=== PATIENT | female | born 2005 | race Caucasian/White ===

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

== ENCOUNTER 2023-12-11 17:18 | Emergency (ER) | payer BC, SELFPAY ==
[2023-12-11 17:22] VITALS: BP 176/104; PULSE 85; RESP 17; TEMP 37.5; O2SAT 99; BMI 27.3
--- NOTE | 2023-12-11 17:33 | DI.RAD.S_ITS ---
PROCEDURE: XR ANKLE RT MIN 3V INDICATIONS: fall TECHNIQUE: 3 views of the ankle were acquired. COMPARISON: [facility], , XR FOOT RT MIN 3V, 12/11/2023, 17:32. FINDINGS: Bones: No fractures or dislocations. Ankle mortise is normally aligned. No suspicious bony lesions. The talar dome demonstrates no jessie abnormality. Soft tissues: Soft tissue swelling is seen laterally. IMPRESSION: Soft tissue swelling is seen, without an acute bony abnormality seen by plain film. If there is point tenderness (or other clinical suspicion for a fracture not seen on these images) then a dedicated CT or a short-term followup plain film series could be considered for further evaluation, as clinically appropriate. Dictated by: John Burch M.D. on 12/11/2023 at 17:14 Approved by: John Burch M.D. on 12/11/2023 at 17:14
--- NOTE | 2023-12-11 17:33 | DI.RAD.S_ITS ---
PROCEDURE: XR FOOT RT MIN 3V INDICATIONS: fall TECHNIQUE: 3 views of the foot were acquired. COMPARISON: [facility], CR, XR ANKLE RT MIN 3V, 12/11/2023, 17:32. FINDINGS: Bones: No fractures or dislocations. No suspicious bony lesions. Soft tissues: No tibiotalar joint effusion. Achilles tendon appears normal. IMPRESSION: No acute bony abnormality is seen on these plain films. Dictated by: John Burch M.D. on 12/11/2023 at 17:14 Approved by: John Burch M.D. on 12/11/2023 at 17:15
--- NOTE | 2023-12-11 17:36 | ED.LOWEXIN ---
HPI - Extremity Injury (Lower) <Cathie Dumont PA-C - Last Filed: 12/11/23 18:29> General Chief Complaint: Extremity Injury, Lower Stated Complaint: R Ankle Injury Time Seen by Provider: 12/11/23 17:36 Source: patient Mode of arrival: Family Vehicle History of Present Illness HPI Narrative: Patient is a 18-year-old female presents to the emergency department with right ankle pain. Patient was walking her dog today around 3:[address] [place], when she ended up twisting her ankle. Patient heard a loud pop and crunching sound. Now she is unable to weightbear. She presents to the emergency room department already using crutches. She complains right lateral ankle pain and swelling. Took Advil prior to being seen here in the emergency department. Complains of pain with any type of weight-bearing activity. Previous ankle sprains to the right, no surgical intervention. No other further complaints. Related Data Home Medications Medication Instructions Recorded Confirmed metformin 1,000 mg tablet 1,000 mg PO BID 09/20/19 07/14/20 aripiprazole 2 mg tablet 2 mg PO DAILY Mood Stabilization 07/14/20 07/14/20 hydrochlorothiazide 25 mg tablet 25 mg PO DAILY 07/14/20 07/14/20 Previous Rx's Medication Instructions Recorded fluoxetine 40 mg capsule (Prozac) 40 mg PO DAILY Depression #30 caps 06/17/20 guanfacine 2 mg tablet,extended 2 mg PO DAILY ADHD #30 tabs 06/17/20 release 24 hr Allergies Allergy/AdvReac Type Severity Reaction Status Date / Time Penicillins Allergy Anaphylaxis Verified 12/11/23 17:29 TDAP Allergy Mild SWELLING Uncoded 12/11/23 17:28 Review of Systems <Cathie Dumont PA-C - Last Filed: 12/11/23 18:29> Review of Systems Narrative: Negative except as above Musculoskeletal Comments: Right ankle pain Patient History <Cathie Dumont PA-C - Last Filed: 12/11/23 18:29> Medical History Attention deficit hyperactivity disorder (ADHD), combined type, moderate Social anxiety disorder of childhood Unspecified asthma Major depressive disorder, recurrent severe without psychotic features Obstructive sleep apnea Excessive daytime sleepiness Childhood obesity (05/11/17) Hypertension (05/11/17) Surgical History History of tonsillectomy and adenoidectomy (02/16/18) Social History household members: family (mom, dad, brother) housing: house Smoking Status: Never smoker Smoking Status: Never smoker alcohol intake frequency: holidays/special occasions only Substance Use Type: does not use Exam <Cathie Dumont PA-C - Last Filed: 12/11/23 18:29> Initial Vital Signs Initial Vital Signs: Vital Signs Temperature 99.5 F 12/11/23 17:22 Pulse Rate 85 12/11/23 17:22 Respiratory Rate 17 12/11/23 17:22 Blood Pressure 176/104 H 12/11/23 17:22 Pulse Oximetry 99 12/11/23 17:22 Oxygen Delivery Method Room Air 12/11/23 17:22 Const General: cooperative, healthy appearing, comfortable, well developed, well groomed, No acute distress and No in distress Nutritional Appearance: overweight Eyes General: Yes appearance normal, both eyes and all related structures Pupils: PERRL EOM: EOM intact bilaterally Skin Other: Warm pink and dry, some soft tissue swelling to the lateral ankle, no ecchymosis, no bruising. Neuro Other: Cranial nerves are grossly intact, cognition and speech are intact, patient using crutches. Extrem Other: Range of motion, strength, pulses, cap refill preserved in the upper extremity and left lower extremity. Right lower extremity exam no pain in the right hip, knee, proximal tib-fib, pain in the right ankle, mild soft tissue swelling is noted, no obvious deformity, lateral soft tissue swelling, no ecchymosis, no bruising, deformity, no pain over the 5th metatarsal, cap refill is preserved, pulses are present, no pain over the midfoot, no pain over the calcaneus. Psych Other: Parents, mental status, speech, movement, mood, affect, attitude, thought process, thought content, judgment are all intact. <Red Smyth MD - Last Filed: 12/11/23 19:26> Initial Vital Signs Initial Vital Signs: Vital Signs Temperature 99.5 F 12/11/23 17:22 Pulse Rate 85 12/11/23 17:22 Respiratory Rate 17 12/11/23 17:22 Blood Pressure 176/104 H 12/11/23 17:22 Pulse Oximetry 99 12/11/23 17:22 Oxygen Delivery Method Room Air 12/11/23 17:22 Scores <Cathie Dumont PA-C - Last Filed: 12/11/23 18:29> GCS Citation: 15 Course <Cathie Dumont PA-C - Last Filed: 12/11/23 18:29> Orders Ordered: ED Orders 12/11/23 17:33 XR ankle RT min 3V Stat XR foot RT min 3V Stat Vital Signs Vital signs: Vital Signs - 8 hr 12/11/23 17:22 12/11/23 18:14 Temperature 99.5 F Pulse Rate 85 84 Respiratory Rate 17 16 Blood Pressure 176/104 H 123/88 Pulse Oximetry 99 99 Oxygen Delivery Method Room Air Room Air <Red Smyth MD - Last Filed: 12/11/23 19:26> Orders Ordered: ED Orders 12/11/23 17:33 XR ankle RT min 3V Stat XR foot RT min 3V Stat Vital Signs Vital signs: Vital Signs - 8 hr 12/11/23 17:22 12/11/23 18:14 Temperature 99.5 F Pulse Rate 85 84 Respiratory Rate 17 16 Blood Pressure 176/104 H 123/88 Pulse Oximetry 99 99 Oxygen Delivery Method Room Air Room Air MDM - Extremity Injury (Lower) <Cathie Dumont PA-C - Last Filed: 12/11/23 18:29> Imaging Data Extremity x-ray #1: My Impression: X-ray of the foot Negative for any acute abnormalities Radiologist's Impression: [address] [address] XRay Report Signed Patient: Lennie Red MR#: [id number] : 2005 Acct:[id number] Age/Sex: 18 / F Date of Service: 12/11/23 Loc: ED Accession Number: [id number] Procedure: XR foot RT min 3V Ordering Provider: Red Smyth MD PROCEDURE: XR FOOT RT MIN 3V INDICATIONS: fall TECHNIQUE: 3 views of the foot were acquired. COMPARISON: [facility], CR, XR ANKLE RT MIN 3V, 12/11/2023, 17:32. FINDINGS: Bones: No fractures or dislocations. No suspicious bony lesions. Soft tissues: No tibiotalar joint effusion. Achilles tendon appears normal. IMPRESSION: No acute bony abnormality is seen on these plain films. Dictated by: John Burch M.D. on 12/11/2023 at 17:14 Approved by: John Burch M.D. on 12/11/2023 at 17:15 Extremity x-ray #2: My Impression: X-ray of the ankle Negative for any acute abnormalities Radiologist's Impression: [address] [address] XRay Report Signed Patient: Lennie Red MR#: [id number] : 2005 Acct:[id number] Age/Sex: 18 / F Date of Service: 12/11/23 Loc: ED Accession Number: [id number] Procedure: XR ankle RT min 3V Ordering Provider: Red Smyth MD PROCEDURE: XR ANKLE RT MIN 3V INDICATIONS: fall TECHNIQUE: 3 views of the ankle were acquired. COMPARISON: [facility], CR, XR FOOT RT MIN 3V, 12/11/2023, 17:32. FINDINGS: Bones: No fractures or dislocations. Ankle mortise is normally aligned. No suspicious bony lesions. The talar dome demonstrates no jessie abnormality. Soft tissues: Soft tissue swelling is seen laterally. IMPRESSION: Soft tissue swelling is seen, without an acute bony abnormality seen by plain film. If there is point tenderness (or other clinical suspicion for a fracture not seen on these images) then a dedicated CT or a short-term followup plain film series could be considered for further evaluation, as clinically appropriate. Dictated by: John Burch M.D. on 12/11/2023 at 17:14 Approved by: John Burch M.D. on 12/11/2023 at 17:14 MDM Narrative Medical decision making narrative: 18-year-old female presents to the emergency room department with lateral right ankle pain after twisting it while walking her dog. Patient used Advil prior to being seen here in the emergency department Patient already has crutches Right lateral ankle soft tissue swelling, no ecchymosis, no obvious deformity X-ray of the right ankle negative for fracture X-ray of the right foot negative Jared wrap Patient has crutches Nonweightbearing for 72 hours progress toe-touch weight-bearing weight-bearing as tolerated High-grade ankle sprain [id number]-afesvby ibuprofen, Tylenol discomfort and pain Differential diagnosis; ankle sprain high-grade internal derangement Supportive therapy education ED precautions Discharge Plan Departure Patient Disposition: Home Clinical Impression: Ankle sprain and strain High ankle sprain of right lower extremity Qualifiers: Encounter type: initial encounter Qualified Code(s): S93.491A - Sprain of other ligament of right ankle, initial encounter Activity Restrictions/Additional Instructions: Rest, ice, elevation Your x-rays are negative for any acute findings Nonweightbearing for 72 hours Progress to full weight-bearing as tolerated [id number] Tylenol, ibuprofen, Aleve for discomfort pain Follow up with her primary care doctor Return to the emergency department as needed Prescriptions: No Action metformin 1,000 mg tablet 1,000 mg PO BID fluoxetine [Prozac] 40 mg capsule 40 mg PO DAILY Qty: 30 1RF guanfacine 2 mg tablet extended release 24 hr 2 mg PO DAILY MDD 2 mg Qty: 30 1RF aripiprazole 2 mg tablet 2 mg PO DAILY MDD 2 mg hydrochlorothiazide 25 mg Tablet 25 mg PO DAILY Referrals: Onelia Carpio ARNP [Primary Care Provider] - Stand Alone Forms: Patient Portal/API ED Sign-out <Red Smyth MD - Last Filed: 12/11/23 19:26> Cosign ED Attending Cosignature Attestation: I was immediately available in the department for consultation. This documentation has been reviewed. Red Smyth MD
[2023-12-11 18:14] VITALS: BP 123/88; PULSE 84; RESP 16; O2SAT 99
== END 2023-12-11 18:45 | disposition home or self-care (01) ==
PROVIDERS: Emergency Provider Physician Assistant; PCP Internal Medicine
DX: S93.401A Sprain of unspecified ligament of right ankle, initial encounter (principal); S96.911A Strain of unspecified muscle and tendon at ankle and foot level, right foot, initial encounter; S93.491A Sprain of other ligament of right ankle, initial encounter; X50.1XXA Overexertion from prolonged static or awkward postures, initial encounter
CPT/HCPCS: 29540; 73610; 73630; 99283

== ENCOUNTER → 2024-02-10 08:10 | Outpatient (CLI) | payer BC, SELFPAY ==
--- NOTE | 2024-02-10 | DI.RAD.S_ITS ---
PROCEDURE: XR SHOULDER LT MIN 2V INDICATIONS: shoulder dislocation, recurrent TECHNIQUE: 3 views of the shoulder were acquired. COMPARISON: None. FINDINGS: Bones: No fractures or dislocations. No suspicious bony lesions. Visualized ribs appear intact. Soft tissues: No suspicious soft tissue calcifications. IMPRESSION: Unremarkable radiographic examination of left shoulder. No obvious Hill-Sachs or Bankart fracture is seen. Dictated by: Robbin Livingston M.D. on 02/10/2024 at 15:01 Approved by: Robbin Livingston M.D. on 02/10/2024 at 15:01
== END ==
PROVIDERS: PCP Internal Medicine; Referring Provider Internal Medicine; Visit Provider Internal Medicine
DX: M24.412 Recurrent dislocation, left shoulder (principal)
CPT/HCPCS: 73030

== ENCOUNTER 2024-02-18 18:21 | Emergency (ER) | payer OTHER, SELFPAY ==
[2024-02-18 18:24] VITALS: BP 167/107; PULSE 94; RESP 16; TEMP 36.9; O2SAT 97; BMI 31.9
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
[2024-02-18 20:16] VITALS: BP 176/91; PULSE 86; O2SAT 99
== END 2024-02-18 20:10 | disposition home or self-care (01) ==
PROVIDERS: Emergency Provider Emergency Medicine; PCP Internal Medicine
DX: S13.4XXA Sprain of ligaments of cervical spine, initial encounter (principal); V89.2XXA Person injured in unspecified motor-vehicle accident, traffic, initial encounter
CPT/HCPCS: 72040; 99281; 99283